=== PATIENT | male | born 1990 | race Caucasian/White ===

== ENCOUNTER 2020-08-05 10:46 | Outpatient (REF) | payer OTHER, SELFPAY ==
--- NOTE | ~2020-08-05 | XR_ITS ---
EXAMINATION: XR HIP, LEFT CLINICAL INFORMATION: Pain COMPARISON: None TECHNIQUE: Two views of the left hip. FINDINGS: Bones and soft tissues are normal. No fracture. Alignment is anatomic. Hip joint space is maintained. XR/XR hip LT min 2V IMPRESSION: Normal left hip.
== END 2020-08-05 10:47 | disposition home or self-care (01) ==
LOC: HO.HMGCX 10:46
PROVIDERS: PCP Internal Medicine; Visit Provider Internal Medicine
DX: M25.552 Pain in left hip (principal)
CPT/HCPCS: 73502

== ENCOUNTER 2020-10-26 08:52 | Emergency (ER) | payer OTHER, SELFPAY ==
--- NOTE | ~2020-10-26 | US_ITS ---
EXAMINATION: US SCROTUM CLINICAL INFORMATION: Left inguinal hernia.. COMPARISON: None TECHNIQUE: A sonogram of the scrotum was performed assessing castañeda-scale appearance and color Doppler flow. Spectral Doppler analysis of the arterial and venous flow were performed in the testes bilaterally. FINDINGS: RIGHT: Right testicle measures 5.22 x 2.45 x 3.23 cm, volume 21.6 mL. No focal testicular parenchymal lesions are visualized. Spectral Doppler analysis of the arterial and venous flow is normal in the right testis. Right epididymal head is normal in size. No right hydrocele. There is moderate varicocele seen. Right epididymal Doppler flow is normal. Incidental finding of echogenic scrotal mar 0.2 x 0.2 x 0.1 cm noted. LEFT: Left testicle measures 4.68 x 2.58 x 3.06 cm, volume 19.3 mL. No focal testicular parenchymal lesions are visualized. Spectral Doppler analysis of the arterial and venous flow is normal in the left testis. Left epididymal head is normal in size. No left hydrocele. There is moderate varicocele seen. Left epididymal Doppler flow is normal. There is no inguinal hernia visualized US/US scrotum IMPRESSION: Normal testes and epididymides. Bilateral varicoceles. There is no left inguinal hernia seen
[2020-10-26 09:07] VITALS: BP 145/80; PULSE 76; RESP 16; TEMP 37.1; O2SAT 98; BMI 31.5
[2020-10-26 09:54] LABS: Glucose Urine UA NEG (NEG); Leukocyte Esterase Urine NEG (NEG); Nitrite Urine NEG (NEG); Specific Gravity - Urine >= 1.030 (1.005-1.025); Urine Blood NEG (NEG); Urine Ketones NEG (NEG); Urine Protein NEG (NEG-TRACE)
[2020-10-26 09:55] LABS: Appearance Urine CLEAR; Color Urine YELLOW
--- NOTE | 2020-10-26 10:26 | ED.EXTPRO ---
HPI - Extremity Problem General Chief complaint: Extremity Problem Stated complaint: l side pain Time Seen by Provider: 10/26/20 09:36 Source: patient Mode of arrival: ambulatory History of Present Illness HPI Narrative: 29-year-old male with no significant past medical history presenting to the ED complaining of left hip/suprapubic pain x1 year. Reports a lot of heavy lifting/motions at work/twisting that exacerbates symptoms. Was seen by PCP and had x-rays of hip that were unremarkable and March. Denies known injury/trauma or falls, numbness or tingling, testicular pain/swelling, dysuria/hematuria, flank pain, discharge Related Data Home Medications Medication Instructions Recorded Confirmed ibuprofen 600 mg tablet 600 mg PO Q8H PRN 05/31/20 05/31/20 Previous Rx's Medication Instructions Recorded acetaminophen [Tylenol Extra 500 mg PO Q6H PRN #20 tab 10/26/20 Strength] cyclobenzaprine 5 mg PO Q8H PRN 5 Days #14 tab 10/26/20 naproxen 500 mg PO BID PRN 10 Days #20 tab 10/26/20 Allergies Allergy/AdvReac Type Severity Reaction Status Date / Time No Known Allergies Allergy Verified 10/26/20 09:07 Review of Systems Review of Systems: Constitutional: No Fever, No Chills, No Fatigue, No Malaise Cardiovascular: No Chest Pain, No SOB Respiratory: No Cough, No Dyspnea Gastrointestinal: No Nausea, No Vomiting, No Diarrhea, No Constipation, +L suprapubic pain Genitourinary: No irregular bleeding, No Dysuria, No Urinary Frequency, No Hematuria, No Urinary Incontinence, No Urgency, No Flank Pain, No Urinary Flow Changes Musculoskeletal: +L hip pain, No Myalgias, No Joint Swelling Skin: No Skin Lesions, No rash Neuro: No Weakness, No Numbness Yes all other systems are reviewed and are negative [facility] Past Medical History Attestation statement: The following information was validated with the patient. Medical History (Updated 10/26/20 @ 11:32 by TORIN Jones) Left hip pain Surgical History (Updated 05/21/20 @ 08:50 by BALDOMERO Harley) No pertinent past surgical history Family History Family History (Updated 05/21/20 @ 08:51 by BALDOMERO Harley) Father Hypertension Mother Medical history unknown Maternal Grandmother No problems noted. Maternal Grandfather No problems noted. Paternal Grandmother No problems noted. Paternal Grandfather No problems noted. Social History Social History (Updated 05/31/20 @ 17:03 by Maren Mckenna MD) Smoking Status: Current some day smoker Tobacco Type: Cigarette Cigarettes Per Day: 2 Advance Directives: Yes Advance Directives Information Provided: Yes Advance Directives on File: No Physical Exam Vital Signs: Vital Signs: Last Vital Signs Temp 98.8 F 10/26/20 09:07 Pulse 76 10/26/20 09:07 Resp 16 10/26/20 09:07 BP 145/80 H 10/26/20 09:07 Pulse Ox 98 10/26/20 09:07 Body Mass Index 31.5 Const: General: cooperative, healthy appearing and no acute distress Orientation/consciousness: patient oriented x3 Limitations: no limitations HENMT: Head: Yes normal to inspection Ears: hearing grossly normal bilaterally General nose exam: Normal external nose present Face and sinus: Yes normal facial exam Eyes: General: appearance normal, both eyes and all related structures EOM: EOMs intact bilaterally Neck: Neck: Yes normal visual inspection and Yes no meningeal signs Resp: Effort & Inspection: normal respiratory effort Cardio: Rate: regular rate GI: Inspection: Yes normal to inspection Palpation (GI): Soft to palpation, nontender, no guarding and not rigid : Other: No appreciable hernia however + ttp in left inguinal canal. +ttp to left groin General: Yes no CVA tenderness Male General Exam: Yes normal external exam Penis: normal penis Scrotum: not erythematous and no scrotal swelling Testes: no testicular tenderness Back/Spine/Pelvis: Other: No midline thoracic/lumbar spinous tenderness Back: no CVA tenderness Skin: Rashes: no rashes Wounds: no wounds Neuro: General: patient oriented x3, tone normal, moves all extremities and no meningeal signs Gait exam (Neuro): Normal gait present Extrem: General: Yes normal to inspection Course Course Course Narrative: -urine not infected US scrotum IMPRESSION: Normal testes and epididymides. Bilateral varicoceles. There is no left inguinal hernia seen >> results discussed with patient including worrisome signs and symptoms and strict return precautions. He verbalized understanding feel safe for discharge home MDM - Extremity (Nontraumatic) MDM Narrative Medical decision making narrative: 29-year-old male with no significant past medical history presenting to the ED complaining of left hip/suprapubic pain x1 year. On exam vital signs stable, NAD/nontoxic-appearing, exam notable for left inguinal canal tenderness and left suprapubic tenderness. Abdomen is soft and nontender, no CVAT, no midline spinous tenderness throughout, ambulating with steady gait. Concern for inguinal hernia vs MSK pain/groin strain vs ?UTI. Unlikely testicular torsion/epididymitis/orchitis with duration of symptoms/no testicular tenderness on exam. Low concern for diverticulitis/appendicitis, renal stone/pyelo. Lower concern for STI Plan: UA, STI testing, scrotal ultrasound to eval hernia Will hold on STI treatment until cultures result Lab Data Labs: Lab Results 10/26/20 Range/Units 09:42 Urine Color YELLOW Urine Appearance CLEAR Urine pH 6.0 (5.0-8.0) Ur Specific [place] >= 1.030 H (1.005-1.025) Urine Protein NEG (NEG-TRACE) MG/DL Urine Glucose (UA) NEG (NEG) MG/DL Urine Ketones NEG (NEG) MG/DL Urine Blood NEG (NEG) Urine Nitrite NEG (NEG) Ur Leukocyte Esterase NEG (NEG) Discharge Plan Discharge Clinical Impression: Chronic suprapubic pain Instructions: Groin Pain (ED) Additional Instructions: Your urine was not infected You were tested for gonorrhea and chlamydia today in the ED, the results should be back in a couple days, refrain from any sexual contact until your cultures have resulted, you will be only be contacted with positive results Your ultrasound did not show any hernia, did show varicocele which is engorged blood vessels and your bilateral testicles You should follow-up with your doctor for further management Take Tylenol and Motrin for your pain In addition Flexeril as a muscle relaxer, take at night makes you drowsy, do not drive, drink alcohol, or operate machinery while taking it. Due to the duration of your symptoms you may have strained your groin Prescriptions: New acetaminophen [Tylenol Extra Strength] 500 mg tablet 500 mg PO Q6H PRN (Reason: pain or fever) Qty: 20 RF: 0 naproxen 500 mg tablet 500 mg PO BID PRN (Reason: pain) 10 Days Qty: 20 RF: 0 cyclobenzaprine 5 mg tablet 5 mg PO Q8H PRN (Reason: pain (scale score 7-10)) 5 Days Qty: 14 RF: 0 No Action ibuprofen 600 mg tablet 600 mg PO Q8H PRN (Reason: pain) RF: 0
[2020-10-26 13:44] LABS: CT PCR NOT DETECTED (Not Detect.); NG PCR NOT DETECTED (Not Detect.)
== END 2020-10-26 12:07 | disposition home or self-care (01) ==
PROVIDERS: Physician Assistant; Emergency Provider Emergency Medicine; PCP Internal Medicine
DX: G89.29 Other chronic pain (principal); R10.30 Lower abdominal pain, unspecified; F17.210 Nicotine dependence, cigarettes, uncomplicated
CPT/HCPCS: 76870; 81003; 87491; 87591; 99283; 99284

== ENCOUNTER 2021-01-26 09:38 | Outpatient (REF) | payer OTHER, SELFPAY ==
--- NOTE | 2021-01-26 09:41 | EMG_ITS ---
This is a 30-year-old man with a 2-year history of right more than left upper extremity pain and numbness and tingling. He is on no medications. PHYSICAL EXAMINATION: On examination, he is alert and oriented with normal intellectual functions. Cranial nerves II through XII are normal. Muscle tone and strength are normal in all 4 extremities. No Tinel or Phalen sign. IMPRESSION: Carpal tunnel syndrome. Nerve conduction EMG study: Mild carpal tunnel syndrome bilaterally, slightly worse on the right. Normal EMG of the right C5-T1 innervated muscles. MD BISHOP Sales/LISA / [id number]
== END 2021-01-26 09:39 | disposition home or self-care (01) ==
LOC: HO.NEURO 09:38
PROVIDERS: Visit Provider Internal Medicine
DX: R20.0 Anesthesia of skin (principal)
CPT/HCPCS: 95885; 95913

== ENCOUNTER 2021-05-09 20:07 | Emergency (ER) | payer OTHER, SELFPAY ==
--- NOTE | ~2021-05-09 | CT_ITS ---
EXAMINATION: CT ABDOMEN AND PELVIS WITHOUT CONTRAST CLINICAL INFORMATION: Abdominal pain. Right flank pain. COMPARISON: 08.27.2018 TECHNIQUE: Multidetector volumetric imaging was performed from the superior aspect of the liver through the pubic symphysis. Sagittal and coronal reformatted images were obtained on the technologist's workstation. This CT examination was performed using dose optimization techniques as appropriate, variously including the following: *Automated exposure control *Adjustment of mA and/or kV according to patient size (this includes techniques or standardized protocols for targeted exams where dose is matched to indication/reason for exam; i.e. extremities or head) *Use of iterative reconstruction technique DLP: 510 mGy-cm FINDINGS: LUNG BASES: The visualized lung bases are unremarkable. LIVER, GALLBLADDER, AND BILIARY TREE: The liver is normal in size, shape, and attenuation. No focal hepatic lesion or biliary ductal dilatation is present. Gallbladder unremarkable. PANCREAS: Unremarkable. SPLEEN: Unremarkable. ADRENAL GLANDS: Unremarkable. KIDNEYS AND URETERS: The kidneys are normal in size, shape, and attenuation. No hydronephrosis, hydroureter, or calculi seen. No perinephric stranding. BLADDER: Unremarkable. GASTROINTESTINAL TRACT: The small and large bowel are unremarkable. The appendix is unremarkable. ABDOMINAL WALL: No significant hernia is appreciated. LYMPH NODES: Normal. VASCULAR: Unremarkable. PELVIC VISCERA: Unremarkable. OSSEOUS STRUCTURES: No acute or suspicious osseous abnormalities. CT/CT abdomen pelvis wo con IMPRESSION: No potential etiology for the patient's abdominal and right flank pain is identified.
--- NOTE | ~2021-05-09 | XR_ITS ---
EXAMINATION: XR CHEST CLINICAL INFORMATION: Cough COMPARISON: 01.16.2020 TECHNIQUE: Frontal view of the chest was obtained. FINDINGS: Normal symmetric lung volumes. No parenchymal consolidation. No pleural effusion. No pneumothorax. Cardiomediastinal silhouette and pulmonary vascularity are within normal limits. No acute osseous abnormalities. XR/XR chest 1V IMPRESSION: Unremarkable examination.
[2021-05-09 21:29] VITALS: BP 82/37; PULSE 76; RESP 18; TEMP 37.6; O2SAT 100; BMI 37.8
[2021-05-09 23:26] LABS: COVID-19 Test Negative (Negative); IDNOW Serial# 08D9AD1C
--- NOTE | 2021-05-10 00:37 | ED.GENADULT ---
HPI - General Adult General Chief complaint: General Medical Stated complaint: Flu like symptoms Time Seen by Provider: 05/10/21 00:28 History of Present Illness HPI narrative: Patient is a 31-year-old male presents today with having right flank pain generalized malaise. Positive nausea. Positive weakness. Positive diarrhea. No history of kidney stones in the past. No fever no chills. Minimal coughing. No diaphoresis. Patient received his coronavirus vaccine x2. No significant past medical history in the past Related Data Previous Rx's Medication Instructions Recorded acetaminophen 500 mg tablet 500 mg PO Q6H PRN #20 tab 10/26/20 (Tylenol Extra Strength) cyclobenzaprine 5 mg tablet 5 mg PO Q8H PRN 5 Days #14 tab 10/26/20 naproxen 500 mg tablet 500 mg PO BID PRN 10 Days #20 tab 10/26/20 ondansetron HCl 4 mg tablet 4 mg PO Q8H PRN #10 tab 05/10/21 (Zofran) Allergies Allergy/AdvReac Type Severity Reaction Status Date / Time No Known Allergies Allergy Verified 11/30/20 16:58 Review of Systems Review of Systems: positive nausea positive abdominal pain positive flank pain all system reviewed otherwise negative PMFSH Past Medical History Attestation statement: The following information was validated with the patient. Medical History Hand numbness Left hip pain Varicocele Surgical History No pertinent past surgical history Family History Family History Father Hypertension Mother Medical history unknown Maternal Grandmother No problems noted. Maternal Grandfather No problems noted. Paternal Grandmother No problems noted. Paternal Grandfather No problems noted. Social History Social History Housing: Apartment Alcohol intake: current Alcohol intake frequency: a few times a month Alcohol type: beer and hard liquor Patient Tobacco Use Status: Current someday Tobacco user Tobacco use type: Cigarette Cigarettes Per Day: 2 e-Cigarette/Vaping Use: Never Used Second Hand Smoke Exposure: No Advance Directives: No service: No Current occupational status: employed Current occupational exposures/hazards: No Physical Exam Vital Signs: Vital Signs: Last Vital Signs Temp 98.4 F 05/10/21 00:49 Pulse 78 05/10/21 00:49 Resp 14 05/10/21 00:49 BP 118/62 05/10/21 00:49 Pulse Ox 99 05/10/21 00:49 BMI result Body Mass Index 37.8 Appearance: Alert. Oriented X3. No acute distress. Eyes: Pupils equal, round and reactive to light. ENT: Pharynx normal. Neck: Normal inspection. Neck supple. No lymph nodes noted. No crepitus CVS: Normal heart rate and rhythm. Pulses normal. Normal S1 and S2 Respiratory: No respiratory distress. Breath sounds normal. No Wheezing. No rales Abdomen: Soft and nontender. No rigidity. No distention. good BS x4 Skin: Skin warm and dry. Normal skin color. Normal skin turgor. Extremities: No lower extremity edema. Neurovascular intact to all extremities. No Lacerations. No Rash Neuro: Oriented X 3. No motor deficit. No sensory deficit. Moving all extermities. No slurred speech Medical Decision Making MDM Narrative Medical decision making narrative: CT scan of the abdomen pelvis grossly negative for any acute evidence of appendicitis no kidney stone. Urine no evidence for infection. Patient given IV fluid with blood pressure improving. Symptomatic we improved. Will give Zofran for nausea encourage fluids. Will discharge patient home. In stable condition. Chest x-ray showed no evidence of pneumonia. Patient's COVID test was negative. Lab Data Result diagrams: 05/10/21 00:47 05/10/21 00:46 Labs: Lab Results 05/09/21 05/10/21 05/10/21 Range/Units 22:56 00:44 00:46 WBC (4.8-10.8) X10*3/uL RBC (4.60-5.80) X10*6/uL Hgb (14.0-18.0) g/dl Hct (42.0-52.0) % MCV (80.0-98.0) fL MCH (27.0-33.0) pg MCHC (31.0-36.0) g/dl RDW (11.0-16.0) % Plt Count (160-400) X10*3/uL MPV (9.4-12.4) fL Immature Gran % (Auto) (0.0-0.4) % Neut % (Auto) (45-73) % Lymph % (Auto) (20-40) % [place] % (Auto) (2-11) % Eos % (Auto) (0-4) % Baso % (Auto) (0-2) % Lymph # (Auto) (1.2-4.9) X10*3/uL [place] # (Auto) (0.1-1.2) X10*3/uL Eos # (Auto) (0.0-0.4) X10*3/uL Baso # (Auto) (0.0-0.2) X10*3/uL Abs Immat Gran (auto) (0.00-0.03) X10*3/uL Absolute Neuts (auto) (2.0-8.3) x10*3/uL Absolute Nucleated RBC (0.0-0.012) X10*3/uL Nucleated RBC % (auto) (0.0-0.2) /100WBC Sodium 140 (135-145) mmol/L Potassium 4.8 (3.3-5.1) mmol/L Chloride 104 (96-108) mmol/L Carbon Dioxide 29 (22-29) mmol/L Anion Gap 12 (12-20) BUN 18 H (9-16) mg/dL Creatinine 1.17 (0.5-1.4) mg/dL Estim Creat Clear Calc 86.7 Estimated GFR > 60 Random Glucose 109 (60-115) mg/dL Calcium 9.7 (8.4-10.2) mg/dL Total Bilirubin 0.9 (0.0-1.0) mg/dL Direct Bilirubin 0.3 (0.0-0.5) mg/dL AST 24 (5-37) U/L ALT 25 (0-40) U/L Alkaline Phosphatase 80 (39-117) U/L Total Protein 8.1 H (6.5-8.0) g/dL Albumin 4.9 (3.5-5.0) g/dL Lipase 19 (8-78) U/L Urine Color YELLOW Urine Appearance CLEAR Urine pH 6.5 (5.0-8.0) Ur Specific [place] 1.025 (1.005-1.025) Urine Protein TRACE (NEG-TRACE) MG/DL Urine Glucose (UA) NEG (NEG) MG/DL Urine Ketones NEG (NEG) MG/DL Urine Blood NEG (NEG) Urine Nitrite NEG (NEG) Ur Leukocyte Esterase NEG (NEG) Urine RBC 1-4 (0) /HPF Urine WBC 1-4 (0-4) /HPF Ur Squamous Epith Cells 1+ /LPF Urine Bacteria 1+ /LPF Urine Mucus 2+ /LPF COVID-19 ([facility]) Negative (Negative) COVID-19 Clin Com See Note 05/10/21 Range/Units 00:47 WBC 8.0 (4.8-10.8) X10*3/uL RBC 4.86 (4.60-5.80) X10*6/uL Hgb 14.7 (14.0-18.0) g/dl Hct 42.4 (42.0-52.0) % MCV 87.2 (80.0-98.0) fL MCH 30.2 (27.0-33.0) pg MCHC 34.7 (31.0-36.0) g/dl RDW 12.0 (11.0-16.0) % Plt Count 176 (160-400) X10*3/uL MPV 9.6 (9.4-12.4) fL Immature Gran % (Auto) 0.4 (0.0-0.4) % Neut % (Auto) 89.1 H (45-73) % Lymph % (Auto) 5.0 L (20-40) % [place] % (Auto) 4.9 (2-11) % Eos % (Auto) 0.3 (0-4) % Baso % (Auto) 0.3 (0-2) % Lymph # (Auto) 0.4 L (1.2-4.9) X10*3/uL [place] # (Auto) 0.4 (0.1-1.2) X10*3/uL Eos # (Auto) 0.0 (0.0-0.4) X10*3/uL Baso # (Auto) 0.0 (0.0-0.2) X10*3/uL Abs Immat Gran (auto) 0.03 (0.00-0.03) X10*3/uL Absolute Neuts (auto) 7.1 (2.0-8.3) x10*3/uL Absolute Nucleated RBC 0.000 (0.0-0.012) X10*3/uL Nucleated RBC % (auto) 0.0 (0.0-0.2) /100WBC Sodium (135-145) mmol/L Potassium (3.3-5.1) mmol/L Chloride (96-108) mmol/L Carbon Dioxide (22-29) mmol/L Anion Gap (12-20) BUN (9-16) mg/dL Creatinine (0.5-1.4) mg/dL Estim Creat Clear Calc Estimated GFR Random Glucose (60-115) mg/dL Calcium (8.4-10.2) mg/dL Total Bilirubin (0.0-1.0) mg/dL Direct Bilirubin (0.0-0.5) mg/dL AST (5-37) U/L ALT (0-40) U/L Alkaline Phosphatase (39-117) U/L Total Protein (6.5-8.0) g/dL Albumin (3.5-5.0) g/dL Lipase (8-78) U/L Urine Color Urine Appearance Urine pH (5.0-8.0) Ur Specific [place] (1.005-1.025) Urine Protein (NEG-TRACE) MG/DL Urine Glucose (UA) (NEG) MG/DL Urine Ketones (NEG) MG/DL Urine Blood (NEG) Urine Nitrite (NEG) Ur Leukocyte Esterase (NEG) Urine RBC (0) /HPF Urine WBC (0-4) /HPF Ur Squamous Epith Cells /LPF Urine Bacteria /LPF Urine Mucus /LPF COVID-19 ([facility]) (Negative) COVID-19 Clin Com Discharge Plan Discharge Clinical Impression: Vomiting, Diarrhea Patient Disposition: Home, Self-Care Instructions: Acute Nausea and Vomiting (ED), Acute Diarrhea (ED), Acute Abdominal Pain (ED) Prescriptions: New ondansetron HCl [Zofran] 4 mg tablet 4 mg PO Q8H PRN (Reason: nausea and vomiting) Qty: 10 RF: 0 No Action acetaminophen [Tylenol Extra Strength] 500 mg tablet 500 mg PO Q6H PRN (Reason: pain or fever) Qty: 20 RF: 0 naproxen 500 mg tablet 500 mg PO BID PRN (Reason: pain) 10 Days Qty: 20 RF: 0 cyclobenzaprine 5 mg tablet 5 mg PO Q8H PRN (Reason: pain (scale score 7-10)) 5 Days Qty: 14 RF: 0 Referrals: Maren Mccoy MD [Primary Care Provider] - 2 days
[2021-05-10 00:49] VITALS: BP 118/62; PULSE 78; RESP 14; TEMP 36.9; O2SAT 99
[2021-05-10 00:51] LABS: Basophils Percent Auto 0.3 % (0-2); Eosinophils Percent Auto 0.3 % (0-4); Hematocrit 42.4 % (42.0-52.0); Hemoglobin 14.7 g/dl (14.0-18.0); Imm Gran Abs Auto 0.03 X10*3/uL (0.00-0.03); Imm Gran Pct Auto 0.4 % (0.0-0.4); Lymphocytes Absolute Auto 0.4 X10*3/uL (1.2-4.9); Mean Corpuscular HGB Conc 34.7 g/dl (31.0-36.0); Mean Corpuscular Hemoglobin 30.2 pg (27.0-33.0); Mean Corpuscular Volume 87.2 fL (80.0-98.0); Mean Platelet Volume 9.6 fL (9.4-12.4); Monocytes Absolute Auto 0.4 X10*3/uL (0.1-1.2); Monocytes Percent Auto 4.9 % (2-11); Neutrophils Absolute Auto 7.1 x10*3/uL (2.0-8.3); Neutrophils Percent Auto 89.1 % (45-73); Platelet Count 176 X10*3/uL (160-400); Red Blood Count 4.86 X10*6/uL (4.60-5.80)
[2021-05-10 00:52] LABS: Appearance Urine CLEAR; Color Urine YELLOW; Glucose Urine UA NEG (NEG); Leukocyte Esterase Urine NEG (NEG); Nitrite Urine NEG (NEG); PH 6.5 (5.0-8.0); Specific Gravity - Urine 1.025 (1.005-1.025); Urine Blood NEG (NEG); Urine Ketones NEG (NEG); Urine Protein TRACE MG/DL (NEG-TRACE)
[2021-05-10 00:52] LABS: MANUAL DIFF FLAG NO
[2021-05-10 00:59] LABS: Bacteria Urine 1+ /LPF; Mucus Urine 2+ /LPF; Squamous Epithelial Cell Urine 1+ /LPF
[2021-05-10] MEDS: ondansetron HCL 4 MG/2 ML VIAL IVPUSH (01:12)
[2021-05-10] MEDS: 0.9 % Sodium Chloride 1,000 ML 999 ML IV ×2 (01:15→01:19)
[2021-05-10 01:18] LABS: Alanine Aminotransferase 25 U/L (0-40); Albumin Level 4.9 g/dL (3.5-5.0); Alkaline Phosphatase 80 U/L (39-117); Anion Gap 12 (12-20); Aspartate Amino Transferase 24 U/L (5-37); Bilirubin Direct 0.3 mg/dL (0.0-0.5); Bilirubin Total 0.9 mg/dL (0.0-1.0); Blood Urea Nitrogen 18 mg/dL (9-16); Calcium 9.7 mg/dL (8.4-10.2); Carbon Dioxide 29 mmol/L (22-29); Chloride 104 mmol/L (96-108); Creatinine Clr Calc Pharmacy 86.7; Estimated Glomerular Filt Rate > 60; Glucose Random 109 mg/dL (60-115); Lipase 19 U/L (8-78); Potassium 4.8 mmol/L (3.3-5.1); Sodium 140 mmol/L (135-145); Total Protein 8.1 g/dL (6.5-8.0)
== END 2021-05-10 02:00 | disposition home or self-care (01) ==
PROVIDERS: Emergency Provider Emergency Medicine Emergency Medical Services; PCP Internal Medicine
DX: R11.10 Vomiting, unspecified (principal); R19.7 Diarrhea, unspecified; F17.200 Nicotine dependence, unspecified, uncomplicated; Z20.822 Contact with and (suspected) exposure to COVID-19; Z71.6 Tobacco abuse counseling; Z79.899 Other long term (current) drug therapy
CPT/HCPCS: 36415; 71045; 74176; 80048; 80076; 81001; 83690; 85025; 87635; 96361; 96374; 99284; J2405

== ENCOUNTER 2022-01-28 08:17 | Outpatient (REF) | payer OTHER, SELFPAY ==
[2022-01-28 09:44] LABS: Alanine Aminotransferase 20 U/L (0-40); Albumin Level 4.5 g/dL (3.5-5.0); Alkaline Phosphatase 78 U/L (39-117); Anion Gap 13 (12-20); Aspartate Amino Transferase 18 U/L (5-37); Bilirubin Total 0.5 mg/dL (0.0-1.0); Blood Urea Nitrogen 16 mg/dL (9-16); Calcium 9.1 mg/dL (8.4-10.2); Carbon Dioxide 28 mmol/L (22-29); Chloride 105 mmol/L (96-108); Cholesterol 147 mg/dL; Estimated Glomerular Filt Rate > 60; Glucose Fasting 90 mg/dL (60-99); HDL Cholesterol 23 mg/dL; Potassium 4.8 mmol/L (3.3-5.1); Sodium 141 mmol/L (135-145); Total Protein 7.6 g/dL (6.5-8.0); Triglycerides 560 mg/dL
== END 2022-01-28 08:18 | disposition home or self-care (01) ==
LOC: HO.LAB 08:17
PROVIDERS: PCP Internal Medicine; Visit Provider Internal Medicine
DX: Z00.00 Encounter for general adult medical examination without abnormal findings (principal)
CPT/HCPCS: 36415; 80053; 80061

== ENCOUNTER 2022-07-10 13:06 | Emergency (ER) | payer OTHER, SELFPAY ==
--- NOTE | ~2022-07-10 | US_ITS ---
EXAMINATION: US SCROTUM CLINICAL INFORMATION: Right testicular pain. COMPARISON: Scrotal ultrasound 10/26/2020 TECHNIQUE: A sonogram of the scrotum was performed assessing castañeda-scale appearance and color Doppler flow. Spectral Doppler analysis of the arterial and venous flow were performed in the testes bilaterally. FINDINGS: RIGHT: Right testicle measures 4.7 x 2.7 x 3.1 cm, volume 20.6 mL. No focal testicular parenchymal lesions are visualized. Spectral Doppler analysis of the arterial and venous flow is normal in the right testis. Right epididymal head is normal in size. No right hydrocele or varicocele is seen. Right epididymal Doppler flow is normal. LEFT: Left testicle measures 4.4 x 2.7 x 3.3 cm, volume 20.5 mL. No focal testicular parenchymal lesions are visualized. Spectral Doppler analysis of the arterial and venous flow is normal in the left testis. Left epididymal head is normal in size. No left hydrocele or varicocele is seen. Left epididymal Doppler flow is normal. US/US scrotum doppler IMPRESSION: Normal ultrasound of scrotum.
--- NOTE | ~2022-07-10 | US_ITS ---
EXAMINATION: US SCROTUM CLINICAL INFORMATION: Right testicular pain. COMPARISON: Scrotal ultrasound 10/26/2020 TECHNIQUE: A sonogram of the scrotum was performed assessing castañeda-scale appearance and color Doppler flow. Spectral Doppler analysis of the arterial and venous flow were performed in the testes bilaterally. FINDINGS: RIGHT: Right testicle measures 4.7 x 2.7 x 3.1 cm, volume 20.6 mL. No focal testicular parenchymal lesions are visualized. Spectral Doppler analysis of the arterial and venous flow is normal in the right testis. Right epididymal head is normal in size. No right hydrocele or varicocele is seen. Right epididymal Doppler flow is normal. LEFT: Left testicle measures 4.4 x 2.7 x 3.3 cm, volume 20.5 mL. No focal testicular parenchymal lesions are visualized. Spectral Doppler analysis of the arterial and venous flow is normal in the left testis. Left epididymal head is normal in size. No left hydrocele or varicocele is seen. Left epididymal Doppler flow is normal. US/US scrotum IMPRESSION: Normal ultrasound of scrotum.
[2022-07-10 13:56] VITALS: BP 139/83; PULSE 86; RESP 18; TEMP 36.6; O2SAT 98; BMI 29.4
--- NOTE | 2022-07-10 13:59 | ED_ITS ---
HPI - General Adult General Chief complaint: Urogenital-Male Stated complaint: R testicle pain Time Seen by Provider: 07/10/22 16:21 Related Data Previous Rx's Medication Instructions Recorded doxycycline hyclate 100 mg tablet 100 mg PO BID 7 days #14 tabs 07/10/22 Allergies Allergy/AdvReac Type Severity Reaction Status Date / Time No Known Allergies Allergy Verified 01/31/22 17:10 [facility] Past Medical History Medical History (Updated 07/10/22 @ 16:44 by TORIN Lozano) Encounter for physical examination Hand numbness Left hip pain Varicocele Surgical History No pertinent past surgical history Family History Family History Father Hypertension Mother Medical history unknown Maternal Grandmother No problems noted. Maternal Grandfather No problems noted. Paternal Grandmother No problems noted. Paternal Grandfather No problems noted. Social History Social History Housing: Apartment Alcohol intake: former Patient Tobacco Use Status: Former Tobacco user Tobacco use type: Cigarette Cigarettes Per Day: 2 e-Cigarette/Vaping Use: Never Used Second Hand Smoke Exposure: No Advance Directives: No Advance Directives Information Provided: No service: No Current occupational status: employed Current occupational exposures/hazards: No Cognitive needs: No Hearing needs: No Vision needs: No Physical Exam ED Vital Signs: Vital Signs - 24 hr 07/10/22 13:56 Temperature 97.9 F Pulse Rate 86 Respiratory Rate 18 Blood Pressure 139/83 Pulse Oximetry 98 Oxygen Delivery Method Room Air BMI result Body Mass Index 29.4 Course Course Course Narrative: RME: 31 yold male presents to the ED for right testicular pain for three pain without any dysuria, hematuria, penile lesions/disharge. UA/CT NG and ultrasound ordered Medications Administered Discontinued Medications Generic Name Dose Route Start Last Admin Trade Name Freq PRN Reason Stop Dose Admin Ceftriaxone Sodium 500 mg/ 0 mg 07/10/22 16:39 07/10/22 16:56 Lidocaine HCl 1 ml IM 07/10/22 16:40 1 kit ONCE ONE Administration Ketorolac Tromethamine 15 mg 07/10/22 16:39 07/10/22 16:57 Ketorolac Tromethamine 15 Mg/Ml Vial IM 07/10/22 16:40 15 mg ONCE ONE Administration Medical Decision Making Lab Data Labs: Lab Results 07/10/22 07/10/22 Range/Units 16:15 16:15 Urine Color Yellow Urine Appearance Clear Urine pH 6.0 (5.0-9.0) Ur Specific [place] 1.020 (1.005-1.025) Urine Protein Negative (Neg-Trace) mg/dL Urine Glucose (UA) Negative (Negative) mg/dL Urine Ketones Negative (Negative) mg/dL Urine Blood Negative (Negative) Urine Nitrite Negative (Negative) Ur Leukocyte Esterase Negative (Negative) Chlam trachomat DNA PCR NOT DETECTED (Not Detect.) N.gonorrhoeae DNA (PCR) NOT DETECTED (Not Detect.) Discharge Plan Discharge Clinical Impression: Pain in testicle, Sciatica Patient Disposition: Home, Self-Care Instructions: Sciatica (ED), Testicle Pain (ED) Additional Instructions: Follow up with your primary care provider. Return to the emergency department immediately if your symptoms worsen or if you develop any dizziness, shortness of breath, difficulty breathing, chest pain, blurry vision, loss of vision, nausea, vomiting, abdominal pain, fever, chills, back pain, or any other complaints. Prescriptions: New doxycycline hyclate 100 mg tablet 100 mg PO BID 7 Days Qty: 14 0RF Referrals: Maren Mccoy MD [Primary Care Provider] - Interventions: ED Discharge Assessment Last Done: 07/10/22 17:54 Discharge Date/Time: 07/10/22 17:54 Print Language: Kazakh
[2022-07-10 16:31] LABS: Appearance Urine Clear; Color Urine Yellow; Glucose Urine UA Negative (Negative); Leukocyte Esterase Urine Negative (Negative); Nitrite Urine Negative (Negative); Urine Blood Negative (Negative); Urine Ketones Negative (Negative); Urine Protein Negative (Neg-Trace)
[2022-07-10] MEDS: cefTRIAXone sodium 500 MG, Lidocaine HCl 1 % MPF 1 ML IM (16:56)
[2022-07-10] MEDS: Ketorolac Tromethamine 15 MG/ML VIAL IM (16:57)
--- NOTE | 2022-07-10 17:03 | PC.NURSE ---
pt medicated per ARLEY advised pt we will be in touch with any positive lab results
[2022-07-10 18:29] LABS: CT PCR NOT DETECTED (Not Detect.); NG PCR NOT DETECTED (Not Detect.)
== END 2022-07-10 17:54 | disposition home or self-care (01) ==
PROVIDERS: Physician Assistant; Emergency Provider Emergency Medicine; PCP Internal Medicine
DX: N50.811 Right testicular pain (principal); M54.31 Sciatica, right side; Z87.891 Personal history of nicotine dependence
CPT/HCPCS: 0353U; 76870; 81003; 93975; 96372; 99283; 99284; J0696; J1885

== ENCOUNTER 2023-04-03 12:37 | Emergency (ER) | payer OTHER, SELFPAY ==
--- NOTE | ~2023-04-03 | XR_ITS ---
EXAMINATION: XR KNEE, RIGHT CLINICAL INFORMATION: Knee pain COMPARISON: None available. TECHNIQUE: Four views of the right knee. FINDINGS: Small quadriceps enthesophyte. No joint effusion. Alignment is anatomic. Joint spaces are maintained. XR/XR knee RT 4V IMPRESSION: Small quadriceps enthesophyte.
[2023-04-03 12:38] VITALS: BP 122/68; PULSE 70; RESP 20; TEMP 36.4; O2SAT 98; BMI 29.4
--- NOTE | 2023-04-03 12:39 | ED.EYEPROB ---
HPI - Eye Problem General Chief complaint: General Medical Stated complaint: EYE Itching, R knee pain Time Seen by Provider: 04/03/23 14:04 Related Data Previous Rx's Medication Instructions Recorded ibuprofen 600 mg tablet 600 mg PO Q8H PRN pain #20 tabs 04/03/23 loratadine 10 mg tablet (Claritin) 10 mg PO DAILY PRN allergic 04/03/23 symptoms #14 tabs Allergies Allergy/AdvReac Type Severity Reaction Status Date / Time No Known Allergies Allergy Verified 11/16/22 16:45 [facility] Past Medical History Medical History Encounter for physical examination Hand numbness Left hip pain Varicocele Surgical History No pertinent past surgical history Family History Family History Father Hypertension Mother Medical history unknown Maternal Grandmother No problems noted. Maternal Grandfather No problems noted. Paternal Grandmother No problems noted. Paternal Grandfather No problems noted. Social History Social History Housing: Apartment Alcohol intake: former Patient Tobacco Use Status: Former Tobacco user Tobacco use type: Cigarette Cigarettes Per Day: 2 e-Cigarette/Vaping Use: Never Used Second Hand Smoke Exposure: No Advance Directives: No service: No Current occupational status: employed Current occupational exposures/hazards: No Cognitive needs: No Hearing needs: No Vision needs: No Physical Exam Vital Signs: Vital Signs: Last Vital Signs Temp 97.5 F 04/03/23 12:38 Pulse 70 04/03/23 12:38 Resp 20 04/03/23 12:38 BP 122/68 04/03/23 12:38 Pulse Ox 98 04/03/23 12:38 O2 Del Method Room Air 04/03/23 12:38 BMI result Body Mass Index 29.4 Course Course Course Narrative: RME: 32yo M w/no sig PMHx c/o R eye irritation and erythema x today while at work w/mild blurry vision. Reports Sunday had unknown facial reaction around R eye with swelling/redness, resolved. Denies injury, visual loss, or wearing glass or contacts. Also reports R knee pain x 1 mos worsening yesterday R eye injected. PERRLA VA, Fluorescein & Tetriane, Knee XR ordered Full HPI, ROS and PE to be performed by primary ED provider. Medications Administered Discontinued Medications Generic Name Dose Route Start Last Admin Trade Name Compa PRN Reason Stop Dose Admin Fluorescein Sodium 1 strip 04/03/23 12:41 04/03/23 14:04 Fluorescein Sodium Strip EYE-RIGHT 04/03/23 12:42 1 strip ONCE ONE Administration Tetracaine HCl 1 drop 04/03/23 12:41 04/03/23 14:04 Tetracaine Hcl/Pf 0.5% Oph Kaylynn 4 Ml Drops EYE-RIGHT 04/03/23 12:42 1 drop ONCE ONE Administration Discharge Plan Discharge Clinical Impression: Allergic conjunctivitis Patient Disposition: Home, Self-Care Additional Instructions: You were seen in the Emergency Room for eyes swelling. Likely your symptoms are secondary to allergic reaction. Take Claritin 10 mg as needed. Return to the emergency room if you notice blurry vision, pain and any ice or fever. For your knee pain I recommend using a brace when at work and ibuprofen 600 mg up to 3 times a day if the pain is not controlled. Follow-up with your primary care physician in 1-2 weeks. Wear protective goggles up work. Prescriptions: New loratadine [Claritin] 10 mg tablet 10 mg PO DAILY PRN (Reason: allergic symptoms) Qty: 14 0RF ibuprofen 600 mg tablet 600 mg PO Q8H PRN (Reason: pain) Qty: 20 0RF Interventions: ED Discharge Assessment Last Done: 04/03/23 14:58 Discharge Date/Time: 04/03/23 14:58
[2023-04-03] MEDS: Tetracaine HCl/PF 0.5% Oph Sol 4 ML DROPS 1 DROP EYE-RIGHT (14:04)
[2023-04-03] MEDS: Fluorescein Sodium STRIP 1 STRIP EYE-RIGHT (14:04)
--- NOTE | 2023-04-03 14:13 | ED_ITS ---
HPI - General Adult General Chief complaint: General Medical Stated complaint: EYE Itching, R knee pain Time Seen by Provider: 04/03/23 14:04 Source: patient Limitations: no limitations History of Present Illness HPI narrative: 32 years old with past medical history of seasonal allergies, presents to the emergency room for bilateral eye itching and swelling. Patient reports that he 1st noticed puffiness around his eyes on Saturdays, it took Benadryl with resolution of symptoms. Today while at work patient felt again his eyes becoming itchy, looked in the mirror and noticed swelling. Patient removed himself from the area where he was and by the time patient arrived to the ED he reports that these symptoms have resolved. He denies direct trauma to size. Denies blurry vision or pain. Patient also complains of right knee pain worsened when he walks it has been ongoing for the past month. Patient denies direct trauma to the knee. Patient denies chest pain, abdominal pain, nausea or vomiting. No headache, Slurred speech or unilateral weakness. Related Data Previous Rx's Medication Instructions Recorded ibuprofen 600 mg tablet 600 mg PO Q8H PRN pain #20 tabs 04/03/23 loratadine 10 mg tablet (Claritin) 10 mg PO DAILY PRN allergic 04/03/23 symptoms #14 tabs Allergies Allergy/AdvReac Type Severity Reaction Status Date / Time No Known Allergies Allergy Verified 11/16/22 16:45 Review of Systems Review of Systems: Yes all other systems are reviewed and are negative FORMERLY [facility] Past Medical History Medical History Encounter for physical examination Hand numbness Left hip pain Varicocele Surgical History No pertinent past surgical history Family History Family History Father Hypertension Mother Medical history unknown Maternal Grandmother No problems noted. Maternal Grandfather No problems noted. Paternal Grandmother No problems noted. Paternal Grandfather No problems noted. Social History Social History Housing: Apartment Alcohol intake: former Patient Tobacco Use Status: Former Tobacco user Tobacco use type: Cigarette Cigarettes Per Day: 2 e-Cigarette/Vaping Use: Never Used Second Hand Smoke Exposure: No Advance Directives: No service: No Current occupational status: employed Current occupational exposures/hazards: No Cognitive needs: No Hearing needs: No Vision needs: No Physical Exam ED Vital Signs: Vital Signs - 24 hr 04/03/23 12:38 Temperature 97.5 F Pulse Rate 70 Respiratory Rate 20 Blood Pressure 122/68 Pulse Oximetry 98 Oxygen Delivery Method Room Air BMI result Body Mass Index 29.4 Const Other: General: Alert, Not in Distress MSK: normal ROM of R knee, no sweeling, no erhytema, drwawer test negative. Skin: No rash, warm HEENT: Atraumatic, No Exudate or Pharyngeal Erythema Resp: Normal Breath sounds bilaterally Cardio: Regular rate and Rhythm, Normal S1, S2 ABD: Abd soft, non tender, no guarding or rebound. Normal Bowel sounds. : No cva tenderness Neuro: Alert, oriented x4, PERRL Strenght 5/5 on all extremities Sensation is preserved in both lower and upper extremities Index to nose: normal Cranial Nerves II-XII grossly intact No dysarthria, or aphasia No neglet. Visual [place] are normal bilaterally Psych: Cooperative, NO SI Medications Administered Discontinued Medications Generic Name Dose Route Start Last Admin Trade Name Freq PRN Reason Stop Dose Admin Fluorescein Sodium 1 strip 04/03/23 12:41 04/03/23 14:04 Fluorescein Sodium Strip EYE-RIGHT 04/03/23 12:42 1 strip ONCE ONE Administration Tetracaine HCl 1 drop 04/03/23 12:41 04/03/23 14:04 Tetracaine Hcl/Pf 0.5% Oph Kaylynn 4 Ml Drops EYE-RIGHT 04/03/23 12:42 1 drop ONCE ONE Administration Medical Decision Making Medical Decision Making MDM Narrative: 32 years old presented to emergency room for bilateral eye itching. Symptoms have improved and resolved after antihistamine which makes me think patient has likely an allergic reaction. Patient has a history of seasonal allergy. His physical exam is otherwise benign. Is also complaining of right knee pain. He imaging that I personally reviewed showed no fracture. Patient reports pain is worsened when he walks and that it works he other stresses his knees. At this time and think he requires further imaging in the emergency room is able to weightbear. Will recommend antihistamine and to use protective googles at work for eye problem and brace and NSAIDs for knee problem. Recommended to follow up with the PCP in 7-10 days. Admission/Observation Consideration of admission/observation: Escalation of care including admission/observation considered Discharge Plan Discharge Clinical Impression: Allergic conjunctivitis Patient Disposition: Home, Self-Care Additional Instructions: You were seen in the Emergency Room for eyes swelling. Likely your symptoms are secondary to allergic reaction. Take Claritin 10 mg as needed. Return to the emergency room if you notice blurry vision, pain and any ice or fever. For your knee pain I recommend using a brace when at work and ibuprofen 600 mg up to 3 times a day if the pain is not controlled. Follow-up with your primary care physician in 1-2 weeks. Wear protective goggles up work. Prescriptions: New loratadine [Claritin] 10 mg tablet 10 mg PO DAILY PRN (Reason: allergic symptoms) Qty: 14 0RF ibuprofen 600 mg tablet 600 mg PO Q8H PRN (Reason: pain) Qty: 20 0RF
== END 2023-04-03 14:58 | disposition home or self-care (01) ==
PROVIDERS: Emergency Provider Student in an Organized Health Care Education/Training Program; PCP Internal Medicine
DX: H10.13 Acute atopic conjunctivitis, bilateral (principal); M25.561 Pain in right knee; Z87.891 Personal history of nicotine dependence
CPT/HCPCS: 73564; 99282; 99283

== ENCOUNTER 2023-11-21 16:51 | Outpatient (AMB) | payer OTHER, SELFPAY ==
--- NOTE | 2023-11-21 17:20 | MHC.PC.OV ---
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 No acute complaints. No chest pain or shortness on breath. FORMERLY [facility] Medical History Encounter for physical examination Hand numbness Varicocele Left hip pain Surgical History No pertinent past surgical history Family History Father Hypertension Mother Medical history unknown Maternal Grandmother No problems noted. Maternal Grandfather No problems noted. Paternal Grandmother No problems noted. Paternal Grandfather No problems noted. Social History Housing: Apartment Alcohol intake: former Patient Tobacco Use Status: Former Tobacco user Tobacco use type: Cigarette Cigarettes Per Day: 2 e-Cigarette/Vaping Use: Never Used Second Hand Smoke Exposure: No service: No Current occupational status: employed Current occupational exposures/hazards: No Cognitive needs: No Hearing needs: No Vision needs: No Questionnaire PHQ-9 Over the last 2 weeks, how often have you been bothered by any of the following problems? 1. Little interest or pleasure in doing things: not at all 2. Feeling down, depressed, or hopeless: not at all 3. Trouble falling or staying asleep, or sleeping too much: not at all 4. Feeling tired or having little energy: not at all 5. Poor appetite or overeating: not at all 6. Feeling bad about yourself - or that you are a failure or have let yourself or your family down: not at all 7. Trouble concentrating on things, such as reading the newspaper or watching television: not at all 8. Moving or speaking so slowly that other people could have noticed. Or the opposite - being so fidgety or restless that you have been moving around a lot more than usual: not at all 9. Thoughts that you would be better off or of hurting yourself in some way: not at all Total score: 0 Source: Developed by Drs. Altaf Damon, Nuvia Pineda, Quirino Mathews and colleagues, with an educational lino from [employer]. Thrive Questionnaire Date Thrive assessed: 11/21/23 I am a: Patient What is your living situation today?: I have a steady place to live Within the past 12 months, did the food you bought not last and you didn't have the money to get more?: Never true Within the past 12 months, did you worry whether your food would run out before you got money to buy more?: Never true Do you have trouble paying for medicines?: No Do you have trouble getting transportation to medical appointments?: No Do you have trouble paying your heating and electricity bill?: No Do you have trouble taking care of your child, family member or friend?: No Do you have trouble with day-to-day activities such as bathing, preparing meals, shopping, managing finances, etc.?: No Are you currently unemployed and looking for a job?: No Are you interested in more education?: No Please select the resources that you would like help with: None Currently or been in a relationship where the following occur: no concerns reported THRIVE Score: 0 AUDIT C Alcohol Use Questionnaire (AUDIT-C) 1. How often do you have a drink containing alcohol?: Monthly or less 2. How many drinks containing alcohol do you have on a typical day when you are drinking?: 1 or 2 3. How often do you have six or more drinks on one occasion?: Never Total Score: 1 RYDER-7 AMB Questionnaire RYDER-7 Date RYDER - 7 assessed: 11/21/23 Feeling nervous, anxious, or on edge: 0 = Not at all Not being able to stop or control worryin = Not at all Worrying too much about different things: 0 = Not at all Trouble relaxin = Not at all Being so restless that it is hard to sit still: 0 = Not at all Becoming easily annoyed or irritable: 0 = Not at all Feeling afraid as if something awful might happen: 0 = Not at all Total RYDER-7 score (0-4 normal; 5-9 mild; 10-14 moderate; 15-21 severe): 0 Source: Developed by Drs. Altaf Damon, Nuvia Pineda, Quirino Mathews and colleagues, with an educational lino from [employer]. Review of Systems Const All systems reviewed & are unremarkable except as noted in HPI and below Eyes Reports no additional complaints, Denies change in vision and Denies other visual disturbances Card Denies chest pain at rest, Denies chest pain with activity, Denies edema, Denies irregular heart rhythm, Denies claudication, Denies dyspnea, Denies dyspnea on exertion, Denies orthopnea, Denies paroxysmal nocturnal dyspnea and Denies slow heart rate Resp Denies cough, Denies dyspnea and Denies dyspnea on exertion GI Denies abdominal pain, Denies change in bowel habits, Denies excessive flatus, Denies nausea and Denies vomiting Denies urinary hesitancy, Denies urinary incontinence and Denies urinary urgency Physical exam (Primary Care) Vital Signs: Last Vital Signs BP 118/80 11/21/23 17:21 BMI result Body Mass Index 29.4 Tobacco/Smoking Status: Tobacco use Status Tobacco use date assessed 11/21/23 11/21/23 17:26 Patient Tobacco Use Status Former Tobacco user 11/21/23 17:26 Tobacco use type Cigarette 11/21/23 17:26 e-Cigarette/Vaping Use Never Used 11/21/23 17:26 PHQ-9: PHQ-9 Score PHQ-9: Total score 0 11/21/23 17:26 Thrive Assessment: Date of Thrive Assessment Date Thrive assessed 11/21/23 11/21/23 17:26 Currently or been in a relationship where the following occur: no concerns reported Const Orientation/consciousness: patient oriented x3 HENMT Head: Yes normal to inspection, Yes normocephalic and Yes atraumatic Ears: external ears normal Eyes General: appearance normal, both eyes and all related structures Eyelids: Yes eyelids normal Conjunctivae: conjunctivae normal Neck Neck: Yes normal visual inspection and Yes supple Resp Effort & Inspection: normal respiratory effort Auscultation: clear to auscultation bilaterally Cardio Jugular venous distension: no JVD Rate: regular rate Rhythm: regular rhythm Heart sounds: S1 normal heart sound present and S2 normal heart sound present GI Inspection: Yes normal to inspection Palpation (GI): Soft to palpation and nontender Auscultation: normal bowel sounds Skin General skin exam: no rashes or lesions noted Neuro General: patient oriented x3 and no focal motor deficits Extrem General: Yes full ROM Psych Appearance: grossly normal Assessment and Plan Assessment & Plan (1) Encounter for physical examination: Code(s): Z00.00 - Encounter for general adult medical examination without abnormal findings Plan: Repeat in a year. Orders: Orders Lipid Panel Today E78.5 - Hyperlipidemia, unspecified, Z00.00 - Encounter for general adult medical examination without abnormal findings Comprehensive [place]. Panel Fast Today Z00.00 - Encounter for general adult medical examination without abnormal findings Coding Level of Care Code Est Pt Prev Care [id number]([id number]) Diagnoses Encounter for physical examination Z00.00 Time Spent (min) 30
[2023-11-21 17:21] VITALS: BP 118/80; BMI 29.4
== END 2023-11-21 17:45 | disposition home or self-care (01) ==
PROVIDERS: PCP Internal Medicine; Visit Provider Internal Medicine
DX: Z00.00 Encounter for general adult medical examination without abnormal findings (principal)
CPT/HCPCS: 99395

== ENCOUNTER 2024-04-26 07:59 | Outpatient (REF) | payer OTHER, SELFPAY ==
[2024-04-26 08:55] LABS: Alanine Aminotransferase 37 U/L (0-40); Albumin Level 4.7 g/dL (3.5-5.0); Alkaline Phosphatase 90 U/L (39-117); Anion Gap 11 (12-20); Aspartate Amino Transferase 32 U/L (5-37); Bilirubin Total 0.4 mg/dL (0.0-1.0); Blood Urea Nitrogen 16 mg/dL (9-16); Calcium 9.3 mg/dL (8.4-10.2); Carbon Dioxide 27 mmol/L (22-29); Chloride 107 mmol/L (96-108); Cholesterol 146 mg/dL (<200); Estimated Glomerular Filt Rate > 60; Glucose Fasting 102 mg/dL (60-99); HDL Cholesterol 24 mg/dL (>40); LDL Cholesterol Calculated 96 mg/dL (<100); Potassium 4.9 mmol/L (3.3-5.1); Sodium 140 mmol/L (135-145); Total Protein 7.6 g/dL (6.5-8.0); Triglycerides 131 mg/dL (<150)
== END 2024-04-26 08:00 | disposition home or self-care (01) ==
LOC: HO.LAB 07:59
PROVIDERS: PCP Internal Medicine; Visit Provider Internal Medicine
DX: Z00.00 Encounter for general adult medical examination without abnormal findings (principal); E78.5 Hyperlipidemia, unspecified
CPT/HCPCS: 36415; 80053; 80061

== ENCOUNTER 2025-01-05 16:50 | Outpatient (AMB) | payer OTHER, SELFPAY ==
--- NOTE | 2025-01-05 16:52 | A.OFFPC_ITS ---
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 He denies any chest pain or shortness on breath. Tdap vaccine will be place today. Last labs were discussed and were within normal limits. No change in bowel or bladder habits. [facility] Medical History Encounter for physical examination Hand numbness Varicocele Left hip pain Surgical History No pertinent past surgical history Family History (Updated 01/05/25 @ 17:08 by Maren Mckenna MD) Father Hypertension Mother Diabetes mellitus Maternal Grandmother No problems noted. Maternal Grandfather No problems noted. Paternal Grandmother No problems noted. Paternal Grandfather No problems noted. Social History Housing: Apartment Alcohol intake: former Patient Tobacco Use Status: Former Tobacco user Tobacco use type: Cigarette Cigarettes Per Day: 2 e-Cigarette/Vaping Use: Never Used Second Hand Smoke Exposure: No service: No Current occupational status: employed Current occupational exposures/hazards: No Cognitive needs: No Hearing needs: No Vision needs: No Questionnaire PHQ-9 Over the last 2 weeks, how often have you been bothered by any of the following problems? 1. Little interest or pleasure in doing things: not at all 2. Feeling down, depressed, or hopeless: not at all 3. Trouble falling or staying asleep, or sleeping too much: not at all 4. Feeling tired or having little energy: not at all 5. Poor appetite or overeating: not at all 6. Feeling bad about yourself - or that you are a failure or have let yourself or your family down: not at all 7. Trouble concentrating on things, such as reading the newspaper or watching television: not at all 8. Moving or speaking so slowly that other people could have noticed. Or the opposite - being so fidgety or restless that you have been moving around a lot more than usual: not at all 9. Thoughts that you would be better off or of hurting yourself in some way: not at all Total score: 0 Depression Screening Interpretation: Negative Depression Screening Done: Yes 45577 - PHQ-9 Billing: Yes Source: Developed by Drs. Altaf Damon, Nuvia Pineda, Quirino Mathews and colleagues, with an educational lino from [employer] Thrive Questionnaire Date Thrive assessed: 01/05/25 I am a: Patient What is your living situation today?: I have a steady place to live Within the past 12 months, did the food you bought not last and you didn't have the money to get more?: Never true Within the past 12 months, did you worry whether your food would run out before you got money to buy more?: Never true Do you have trouble paying for medicines?: No Do you have trouble getting transportation to medical appointments?: No Do you have trouble paying your heating and electricity bill?: No Do you have trouble taking care of your child, family member or friend?: No Do you have trouble with day-to-day activities such as bathing, preparing meals, shopping, managing finances, etc.?: No Are you currently unemployed and looking for a job?: No Are you interested in more education?: No Please select the resources that you would like help with: None Currently or been in a relationship where the following occur: No concerns reported THRIVE Score: 0 AUDIT C Alcohol Use Questionnaire (AUDIT-C) 1. How often do you have a drink containing alcohol?: Never Total Score: 0 Score Reviewed/Action Taken: No RYDER-7 AMB Questionnaire RYDER-7 Date RYDER - 7 assessed: 01/05/25 Feeling nervous, anxious, or on edge: 0 = Not at all Not being able to stop or control worryin = Not at all Worrying too much about different things: 0 = Not at all Trouble relaxin = Not at all Being so restless that it is hard to sit still: 0 = Not at all Becoming easily annoyed or irritable: 0 = Not at all Feeling afraid as if something awful might happen: 0 = Not at all Total RYDER-7 score (0-4 normal; 5-9 mild; 10-14 moderate; 15-21 severe): 0 Source: Developed by Drs. Altaf Damon, Nuvia Pineda, Quirino Mathews and colleagues, with an educational lino from [employer] RYDER-7 Assessment Billing RYDER-7 Assessment Tool: RYDER-7 Assessment 09364 Review of Systems Const All systems reviewed & are unremarkable except as noted in HPI and below Card Denies chest pain at rest, Denies chest pain with activity, Denies edema, Denies irregular heart rhythm, Denies claudication, Denies dyspnea, Denies dyspnea on exertion, Denies orthopnea, Denies paroxysmal nocturnal dyspnea and Denies slow heart rate Resp Denies cough, Denies dyspnea and Denies dyspnea on exertion GI Denies abdominal pain, Denies change in bowel habits, Denies excessive flatus, Denies nausea and Denies vomiting Denies urinary hesitancy, Denies urinary incontinence and Denies urinary urgency Musc Denies abnormal gait, Denies atrophy, Denies deformity and Denies limited range of motion Skin/Breast Denies bleeding lesions, Denies changing lesions and Denies rash Neuro Denies abnormal gait, Denies behavioral changes and Denies lack of coordination Psych Denies behavioral changes Physical exam (Primary Care) Vital Signs: Last Vital Signs BP 130/80 01/05/25 16:53 BMI result Body Mass Index 27.7 Tobacco/Smoking Status: Tobacco use Status Tobacco use date assessed 01/05/25 01/05/25 16:56 Patient Tobacco Use Status Former Tobacco user 01/05/25 16:56 Tobacco use type Cigarette 01/05/25 16:56 e-Cigarette/Vaping Use Never Used 01/05/25 16:56 PHQ-9: PHQ-9 Score PHQ-9: Total score 0 01/05/25 17:25 Depression Screening Interpretation: Negative Thrive Assessment: Date of Thrive Assessment Date Thrive assessed 01/05/25 01/05/25 16:56 Currently or been in a relationship where the following occur: No concerns reported [facility] Head: Yes normal to inspection, Yes normocephalic and Yes atraumatic Ears: external ears normal Eyes General: appearance normal, both eyes and all related structures Eyelids: Yes eyelids normal Conjunctivae: conjunctivae normal Neck Neck: Yes normal visual inspection and Yes supple Resp Effort & Inspection: normal respiratory effort Auscultation: clear to auscultation bilaterally Cardio Jugular venous distension: no JVD Rate: regular rate Rhythm: regular rhythm Heart sounds: S1 normal heart sound present and S2 normal heart sound present GI Inspection: Yes normal to inspection Palpation (GI): Soft to palpation and nontender Auscultation: normal bowel sounds Skin General skin exam: no rashes or lesions noted Neuro General: no focal motor deficits Extrem General: Yes full ROM Psych Appearance: grossly normal Immunizations Boostrix Tdap 2.5 Lf unit-8 mcg-5 Lf/0.5 mL intramuscular syringe Performing Provider: Maren Mckenna MD Performing Location: [facility] Administered by: BALDOMERO Cardoza on 01/05/25 17:25 Dose Route Admin Location Dispensed Lot Number Expiration Date NDC Intranet Specialist 0.5 mL IM Right Deltoid 0.5 mL [id number] 03/27/27 56180-037-78 [employer] Total Dispensed Waste 0.5 mL 0 % VIS Given Date VIS Provided VIS Publication Date 01/05/25 Single Vaccine 24 Eligibility Eligibility Date Funding Source Not [facility] Eligible 01/05/25 Private Coding Level of Care Code Est Pt Prev Care 18-39y(82517) Diagnoses Encounter for physical examination Z00.00 Additional Codes RYDER-7 Assessment Billing - RYDER-7 Assessment Tool: RYDER-7 Assessment 27071 ([id number]) PHQ-9 - 24515 - PHQ-9 Billing: Yes ([id number]) Time Spent (min) 30 Assessment & Plan Assessment & Plan (1) Encounter for physical examination: Code(s): Z00.00 - Encounter for general adult medical examination without abnormal findings Category: Medical Plan Repeat in a year. Orders: Orders TDaP Immunization Today Z23 - Encounter for immunization
[2025-01-05 16:53] VITALS: BP 130/80; BMI 27.7
== END 2025-01-05 17:19 | disposition home or self-care (01) ==
LOC: HO.HMCH 16:51
PROVIDERS: PCP Internal Medicine; Visit Provider Internal Medicine
DX: Z23 Encounter for immunization (principal); Z00.00 Encounter for general adult medical examination without abnormal findings

== ENCOUNTER → 2025-01-05 16:50 | Outpatient (BNVA) | payer OTHER, SELFPAY | PROVIDERS: PCP Internal Medicine; Visit Provider Internal Medicine | DX: Z00.00 Encounter for general adult medical examination without abnormal findings (principal); Z23 Encounter for immunization | CPT/HCPCS: 90471; 90715; 96127 ==